=== PATIENT | male | born 1970 | race Caucasian/White ===

== ENCOUNTER 2016-12-10 07:04 | Emergency (ER) | payer OTHER ==
[2016-12-10 07:19] VITALS: PULSE 76; RESP 18; TEMP 97.9; O2SAT 94
[2016-12-10 07:28] VITALS: BP 176/108
--- NOTE | 2016-12-10 07:36 | UCPHY ---
H & P Time Seen by Provider: 12/10/16 07:25 Patient Type: Established HPI/ROS: This patient reports 24 hour onset of great toe pain to the left great toe that started yesterday in increased steadily to now severe pain the prevented sleep. The symptoms are at the 1st metatarsophalangeal joint and identical to previous gout flares. He admits recent dietary indiscretion-eating a lot of fast food and meat due to increased traveling work stress. He reports this typically initiates a gout flare for him. ROS: No fevers or chills. No other constitutional symptoms. Musculoskeletal: No recent trauma and no other joint pain. 5 point ROS is otherwise negative. Past Medical/Surgical History: Gout Social History: He eats meat. He drinks alcohol socially has not had a drink in 3 weeks. Smoking Status: Current every day smoker Physical Exam: Physical Exam Vital signs are normal. General: No acute distress Eyes: Pupils equal and react to light. Extraocular motions are intact. Lungs: No respiratory distress. Cardiac: Brisk capillary refill is intact throughout. Pulses are 2+ and symmetric in the affected extremity. Skin: No rash or pallor. Extremities: Atraumatic normal except for left great toe which is notable for 1st metatarsophalangeal joint swelling and pain. There is mild redness minimal warmth. No skin lesions overlying the area. No ecchymosis. No other foot tenderness. Neuro: Alert and oriented x3 with no sensorimotor deficits. Constitutional: Initial Vital Signs Temperature (C) 36.6 C 12/10/16 07:15 Heart Rate 76 12/10/16 07:15 Respiratory Rate 18 12/10/16 07:15 Blood Pressure 176/108 H 12/10/16 07:15 O2 Sat (%) 94 12/10/16 07:15 O2 Delivery Mode Room Air Allergies/Adverse Reactions: No Known Allergies Allergy (Verified 12/10/16 07:15) Home Medications: Medication Instructions Recorded Indomethacin [Indocin 25 mg (RX)] 50 mg PO TID PRN #50 cap 12/10/16 oxyCODONE/APAP 5/325 [Percocet 1 - 2 tab PO Q4-6PRN PRN #20 tab 12/10/16 5/325 (*)] MDM/Departure - MDM ED Course/Re-evaluation: The patient is placed in a postop shoe. I counseled him regarding gout flares. He will follow up with primary care physician. He appears clinically well and do not suspect septic joint or other causes in this case - Depart Disposition: Home, Routine, Self-Care Clinical Impression: Gout attack Qualifiers: Gout site: foot Gout etiology: idiopathic Laterality: left Qualified Code(s): M10.072 - Idiopathic gout, left ankle and foot Condition: Good Instructions: How to Stop Smoking (ED), Low Purine Diet (ED), Gout (ED) Additional Instructions: Diagnosis: Gout attack-great toe Plan: Drink plenty fluids Decreased protein intake Indomethacin Tylenol or Percocet in addition if needed for pain control Postop shoe for comfort until symptoms improve. Call your primary care physician to arrange follow-up appointment in inquire about potential for starting allopurinol given your repeated episodes. Quit smoking Return for any significant worsening despite the treatment plan Prescriptions: Indomethacin [Indocin 25 mg (RX)] 50 mg PO TID PRN #50 cap PRN Reason: pain oxyCODONE/APAP 5/325 [Percocet 5/325 (*)] 1 - 2 tab PO Q4-6PRN PRN #20 tab PRN Reason: Pain Referrals: IN STATE,. [Primary Care Provider] - As per Instructions - PQRS PQRS Measurement: NA
== END 2016-12-10 07:47 | disposition home or self-care (01) ==
LOC: CED 07:04
DX: M10.072 Idiopathic gout, left ankle and foot (principal); Z72.0 Tobacco use
CPT/HCPCS: 99214-PO; G0463-PO